=== PATIENT | female | born 1995 | race African-American/Black ===

== ENCOUNTER 2018-11-10 11:12 | Outpatient (CLI) | payer OTHER | END 2018-11-10 11:13 | disposition home or self-care (01) | LOC: SC 11:12 | PROVIDERS: ATTEND Internal Medicine Pulmonary Disease | DX: R06.83 Snoring (principal); R06.81 Apnea, not elsewhere classified; R41.89 Other symptoms and signs involving cognitive functions and awareness; R53.83 Other fatigue; G47.8 Other sleep disorders; G47.00 Insomnia, unspecified | CPT/HCPCS: 99203; 99212 ==

== ENCOUNTER 2018-11-13 11:58 | Emergency (ER) | payer OTHER ==
[2018-11-13 12:22] VITALS: BP 118/61
--- NOTE | 2018-11-13 12:41 | ED Physician Documentation ---
PD HPI URI - Stated complaint Stated Complaint: THROAT/EAR PX - Chief complaint Chief Complaint: Heent - History obtained from History obtained from: Patient - History of Present Illness Timing - onset: How many days ago (2) Timing duration: Days (2) Timing details: Abrupt onset, Still present Associated symptoms: Ear pain (left ear), Sore throat, Swollen nodes. No: Nasal congestion, Productive cough Contributing factors: No: Sick contact Recently seen: Not recently seen Review of Systems Constitutional: reports: Chills. denies: Fever Ears: reports: Ear pain (left, hurts with swallowing.) Nose: denies: Rhinorrhea / runny nose, Congestion, Sinus pressure / pain Throat: reports: Sore throat, Swollen tonsils Respiratory: denies: Cough GI: denies: Abdominal Pain, Nausea, Vomiting Skin: denies: Rash, Lesions PD PAST MEDICAL HISTORY - Past Medical History Cardiovascular: None Respiratory: None - Present Medications Home Medications: Ambulatory Orders Medication Instructions Recorded Confirmed Bcp 11/13/18 Cephalexin [Keflex] 500 mg PO TID #20 capsule 11/13/18 Dexamethasone [Decadron] 4 mg PO DAILY #5 tablet 11/13/18 Naproxen 375 mg PO BID #20 tablet 11/13/18 - Allergies Allergies/Adverse Reactions: Allergies Allergy/AdvReac Type Severity Reaction Status Date / Time No Known Drug Allergies Allergy Verified 11/13/18 12:21 PD ED PE NORMAL - Vitals Vital signs reviewed: Yes - General General: Alert and oriented X 3, No acute distress, Well developed/nourished - HEENT HEENT: No: Pharynx benign (tonsils red and moderately enlarged with exudate both sides, more to the left.) - Neck Neck: Supple, no meningeal sign, Other (anterior adenopathy) - Cardiac Cardiac: RRR, No murmur - Respiratory Respiratory: Clear bilaterally - Derm Derm: Normal color, Warm and dry, No rash Results - Vitals Vitals: Vital Signs - 24 hr 11/13/18 12:13 Temperature 36.5 C Heart Rate 66 Respiratory 16 Rate Blood Pressure 118/61 O2 Saturation 99 Oxygen O2 Source Room air - Labs Labs: Laboratory Tests 11/13/18 12:25 Group A Strep Rapid Negative PD MEDICAL DECISION MAKING - ED course Complexity details: reviewed results, considered differential (high clinical suspicion. ), d/w patient Departure - Departure Disposition: 01 Home, Self Care Clinical Impression: Exudative tonsillitis Condition: Stable Record reviewed to determine appropriate education?: Yes Follow-Up: BRIANDA Feldman [Provider Group] Prescriptions: Cephalexin [Keflex] 500 mg PO TID #20 capsule Dexamethasone [Decadron] 4 mg PO DAILY #5 tablet Naproxen 375 mg PO BID #20 tablet Comments: Stay well-hydrated. Naproxen anti-inflammatory twice daily for the next several days for pains. Decadron for inflammation around the tonsils. This looks suspicious for bacterial infection and we will treated with cephalexin. The culture will result in 2-3 days. If it is negative we could stop the antibiotics at that point but it does look likely to be bacterial. Forms: Activity restrictions Discharge Date/Time: 11/13/18 13:23
[2018-11-13] MEDS ORDERED: DEXAMETHASONE 10 MG/ML VIAL PO STA (13:11)
[2018-11-13] MEDS ORDERED: CHERRY SYRUP 10 ML UDC PO ONE (13:11)
[2018-11-13] MEDS ORDERED: cephALEXin 250 MG CAPSULE PO STA (13:11)
== END 2018-11-13 13:23 | disposition home or self-care (01) ==
LOC: ED 11:58
DX: J03.90 Acute tonsillitis, unspecified (principal)
CPT/HCPCS: 87070; 87430; 99282; 99283; A9270

== ENCOUNTER 2018-11-24 20:39 | Outpatient (CLI) | payer OTHER | END 2018-11-24 20:40 | disposition home or self-care (01) | LOC: SC 20:39 | PROVIDERS: ATTEND Internal Medicine Pulmonary Disease | DX: R06.83 Snoring (principal); G47.00 Insomnia, unspecified | CPT/HCPCS: 95810 ==

== ENCOUNTER 2018-12-08 13:14 | Outpatient (CLI) | payer OTHER | END 2018-12-08 13:15 | disposition home or self-care (01) | LOC: SC 13:14 | PROVIDERS: ATTEND Nurse Practitioner Family | DX: R06.83 Snoring (principal); G47.00 Insomnia, unspecified | CPT/HCPCS: 99212; 99214 ==

== ENCOUNTER 2019-10-21 06:29 | Day surgery (SDC) | payer OTHER ==
[2019-10-21] MEDS ORDERED: fentaNYL 100 MCG/2 ML VIAL ONE (06:58)
[2019-10-21] MEDS ORDERED: ONDANSETRON 4 MG/2 ML VIAL ONE (07:02)
--- NOTE | 2019-10-21 07:03 | ANESTHESIA ---
Pre-Anesthesia VS, & Labs - Diagnosis missed AB - Procedure Hysteroscopy, D&C Vital Signs: Temp Pulse Resp BP Pulse Ox 87 20 106/93 H 100 10/21/19 06:30 10/21/19 06:30 10/21/19 06:30 10/21/19 06:30 Height 5 ft 5 in Weight (kg) 65.77 kg Body Mass Index 24.1 - NPO >8 hours - Is Patient ?: Yes (missed AB) Home Medications and Allergies Home Medications: Ambulatory Orders Acetaminophen/Cod 300/30 [Tylenol #3] 1 tab PO DAILY 10/20/19 FLUoxetine [PROzac] 10 mg PO DAILY 10/20/19 Ondansetron Odt [Zofran Odt] 4 mg PO DAILY 10/20/19 Acetaminophen/Cod 300/30 [Tylenol #3] 1 tab PO DAILY 10/20/19 FLUoxetine [PROzac] 10 mg PO DAILY 10/20/19 Ondansetron Odt [Zofran Odt] 4 mg PO DAILY 10/20/19 Allergies/Adverse Reactions: Allergies Allergy/AdvReac Type Severity Reaction Status Date / Time No Known Drug Allergies Allergy Verified 10/21/19 07:01 Anes History & Medical History - Anesthetic History Anesthesia Complications: reports: No previous complications Family history of Anesthesia Complications: Denies Family history of Malignant Hyperthermia: Denies - Medical History Cardiovascular: reports: None Pulmonary: reports: None Gastrointestinal: reports: None Urinary: reports: None Neuro: reports: None Musculoskeletal: reports: Chronic back pain Endocrine/Autoimmune: reports: None Blood Disorders: reports: None Skin: reports: Eczema Smoking Status: Never smoker Exam General: Alert, Oriented x3, Cooperative Dental: WNL Mouth Openin Fingerbreadth Neck Mobility: Normal Mallampati classification: II Thyromental Distance: 4-6 cm Respiratory: Lungs clear, Normal breath sounds, No respiratory distress Cardiovascular: Regular rate Neurological: Normal speech Mental/Cognitive Status: Alert/Oriented X3, Normal for patient Cognitive Status: Within normal limits Plan Anesthesia Type: General (backup), MAC Consent for Procedure(s) Verified and Reviewed: Yes Code Status: Attempt Resuscitation ASA classification: 2-Mild systemic disease Is this case an emergency?: No
[2019-10-21] MEDS ORDERED: LIDOCAINE 1%-EPI 1:100000 20 ML MDV ONE (07:07)
[2019-10-21] MEDS ORDERED: SILVER NITRATE APPLICATOR TOP ONE (07:07)
--- NOTE | 2019-10-21 07:07 | HISTORY & PHYSICAL EXAMINATION ---
HPI - Admitted From Admitted from: Direct admit - History Obtained From History obtained from: Patient Exam limitations: No limitations - History of Present Illness Severity at the worst: reports: Severe Pain Quality: reports: Cramping HPI Comment/Other: 24 yo woman at 10+6 wga by LMP c/w 9 wga u/s demonstrating viability. Had u/s at [place] [facility] yesterday after visit for light bleeding with CRL c/w 9+2 wga and no FCA, consistent with missed . No speculum exam at that time, mild cramping. No odorous discharge. This AM reports onset of severe cramping, heavy bleeding like menses with passage of grape size clots. Bleeding started 1h prior to presentation, at approx 0530. No other change in health. Ongoing intermittent fevers, last at 1600 to 102.2F, associated with shaking chills. Dry cough but no CP, SOB. No other acute concerns. Has been having intermittent fever for 5 days, has been swabbed for COVID x 2 at [facility], no results yet. Flu swabs were negative. 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 CV: S1 and S2 wnl, no EHS Resp: AE clear to bases BL Abdo: soft, nondistended, diffuse tenderness across lower quadrants with no rebound or guarding. A/P 24 yo , rh+, with MAB and intermittent fever. Fever could be related to COVID with very mild URI symptoms, but can not exclude septic Ab. May be beginning to pass products of conception, but given fevers recommend defintive evacuation rather than expectant management. Will proceed with D&C this AM under sedation with local block. CBC, T&S pending. Doxycycline 200 mg IV preop. SCDs for VTE prophylaxis. Will get cultures of POC. If no evidence on gross evaluation of POC of infection, will discharge home today postop. PMH/PSH - Past Medical History Cardiovascular: positive: None Respiratory: positive: None Neuro: positive: None Endocrine/Autoimmune: positive: None GI: positive: None LOAN OPERATIONS MANAGER: positive: None : positive: None HEENT: positive: None Psych: positive: Depression, Anxiety Musculoskeletal: positive: Chronic back pain Derm: positive: Eczema MRSA Hx?: No Social & Family Hx - Social History Does the pt smoke?: No Smoking Status: Never smoker Does the pt drink ETOH?: No Does the pt have substance abuse?: No - POLST Patient has POLST: No Meds/Allgy - Home Medications Home Medications: Ambulatory Orders Medication Instructions Recorded Confirmed Naproxen 375 mg PO BID #20 tablet 11/13/18 10/20/19 Acetaminophen/Cod 300/30 [Tylenol 1 tab PO DAILY 10/20/19 10/20/19 #3] FLUoxetine [PROzac] 10 mg PO DAILY 10/20/19 10/20/19 Ondansetron Odt [Zofran Odt] 4 mg PO DAILY 10/20/19 10/20/19 - Allergies Allergies/Adverse Reactions: Allergies Allergy/AdvReac Type Severity Reaction Status Date / Time No Known Drug Allergies Allergy Verified 10/21/19 07:01 Exam - Vital Signs Vital Signs: Vital Signs x48h Pulse Resp BP Pulse Ox 10/21/19 06:30 87 20 106/93 H 100
[2019-10-21] MEDS ORDERED: LACTATED RINGERS 1,000 ML IV ONE (07:16)
[2019-10-21] MEDS ORDERED: MIDAZOLAM 2 MG/2 ML VIAL IVP ONE (07:24)
[2019-10-21] MEDS ORDERED: PROPOFOL 200 MG/20 ML VIAL IVP ONE (07:24)
[2019-10-21] MEDS ORDERED: fentaNYL 100 MCG/2 ML VIAL IVP ONE (07:24)
[2019-10-21 07:30] LABS: BASOPHILS % (AUTO) 0.4 %; HGB - HEMOGLOBIN 10.9 g/dL (12.0-16.0); LYMPHOCYTES % (AUTO) 8.5 %; MEAN CORPUSCULAR HEMOGLOBIN 31.2 pg (27.0-31.0); MEAN CORPUSCULAR HGB CONC 33.4 g/dL (32.0-36.0); MEAN CORPUSCULAR VOLUME 93.4 fL (81.0-99.0); MEAN PLATELET VOLUME 9.2 fL (7.9-10.8); MONOCYTES # (AUTO) 0.6 10^3/uL (0.0-1.0); MONOCYTES % (AUTO) 5.4 %; NEUTROPHILS # (AUTO) 9.6 10^3/uL (1.5-6.6); NEUTROPHILS % (AUTO) 85.3 %; PLT - PLATELET COUNT 287 10^3/uL (130-450); RED BLOOD COUNT 3.49 10^6/uL (4.20-5.40); RED CELL DISTRIBUTION WIDTH 11.8 % (12.0-15.0); WHITE BLOOD COUNT 11.3 x10^3/uL (4.8-10.8)
[2019-10-21] MEDS ORDERED: LIDOCAINE 1%-EPI 1:100000 20 ML MDV SUBQ ONE (07:48)
[2019-10-21] MEDS ORDERED: METHYLERGONOVINE 0.2 MG/ML VIAL ONE (07:54)
[2019-10-21] MEDS ORDERED: DOXYCYCLINE IV SCH (08:00)
[2019-10-21] MEDS ORDERED: SODIUM CHLORIDE 0.9% IV SCH (08:00)
[2019-10-21] MEDS ORDERED: ONDANSETRON 4 MG/2 ML VIAL IVP PRN (08:08)
[2019-10-21] MEDS ORDERED: HYDROmorphone 0.5 MG/0.5 ML SYRINGE IVP PRN (08:08)
[2019-10-21] MEDS ORDERED: oxyCODONE 5 MG TABLET PO PRN (08:08)
--- NOTE | 2019-10-21 08:11 | OPERATIVE REPORT ---
Operative Report - General Procedure Date: 10/21/19 Planned Procedure: suction dilation and curettage Pre-Op Diagnosis: missed , fever, can not r/o septic Procedure Performed: dilation and curettage Post Op Diagnosis: missed , no evidence of intrauterine infection - Procedure Note Primary Surgeon: Karlos Russo Anesthesia Technique: MAC Pathology: 1. products of conception 2. culture for bacterial infection Estimated Blood Loss (mL): 100 Urine Output (mL): 500 Indications: missed , fever Findings: cervix dilated to 2 cm, some placental tissue in os at start of case. No odorous discharge. Tissue in cervix removed with ring forceps, then evacuated with suction. Methergine 200 mcg given IM at conclusion for some mild uterine atony, improved. Complications: none. - Other Other Information/Narrative: After informed consent was assured, patient was taken to the OR with IV fluids running. Patient was positioned in high dorsal lithotomy with Yellow fin stirrups. The pad she was wearing was noted to have some small tissue and clot; a culture swab was taken of this tissue, and the tissue was placed in formalin to send with the specimen. No odorous or discolored discharge. She was prepped and draped in a sterile fashion. A surgical timeout was performed. The speculum was inserted and the cervix was visualized to be dilated approximately 2 cm, with what appeared to be placental tissue extruding from the os; this was removed with ring forceps. A paracervical block was performed with 1% of lidocaine plain. A tenaculum was applied to the anterior lip of the cervix. The 8 mm curved curette was introduced to the fundus and suction was applied as the curette was withdrawn along all surfaces of the uterine wall, with moderate tissue returned over several passes. All instruments were removed from the vagina. The uterus was slightly atonic, so 200 mcg methergine were given IM. Good hemostasis and small uterus at conclusion. The patient was awoken from anesthesia and returned to the PACU in stable condition.
[2019-10-21 08:32] VITALS: BP 127/74
== END 2019-10-21 06:30 | disposition home or self-care (01) ==
LOC: SDS 06:29
PROVIDERS: ATTEND Obstetrics & Gynecology
PROC: 10D17Z9 Manual Extraction of Products of Conception, Retained, Via Natural or Artificial Opening (ICD-10-PCS; principal; 2019-10-21 07:30)
DX: O02.1 Missed abortion (principal); O08.0 Genital tract and pelvic infection following ectopic and molar pregnancy; F32.9 Major depressive disorder, single episode, unspecified; F41.9 Anxiety disorder, unspecified; B96.89 Other specified bacterial agents as the cause of diseases classified elsewhere; Z3A.10 10 weeks gestation of pregnancy
CPT/HCPCS: 85025; 86850; 86900; 86901; 87070; 87077; 87205